=== PATIENT | male | born 1980 | race Caucasian/White ===

== ENCOUNTER 2020-10-10 02:13 | Emergency (ER) | payer OTHER ==
[~2020-10-10] VITALS: Ht 177.8 cm; Wt 99.8 kg
[~2020-10-10 02:13] MED LIST: ZANTAC 150MG T150 MG PO
[2020-10-10 02:42] LABS: ABSOLUTE NEUTROPHILS 3.6 thou/uL (1.4-8.2); BASOPHILS 0.4 % (0.0-2.0); EOSINOPHILS 3.2 % (0.0-3.0); HEMATOCRIT 45.7 % (42.0-52.0); HEMOGLOBIN 15.1 gm/dL (14.0-18.0); LYMPHOCYTES 28.3 % (24.0-44.0); MCH 30.3 pg (26.0-34.0); MCHC 33.1 g/dL (28.0-37.0); MCV 91.4 fL (80.0-100.0); MONOCYTES 7.3 % (1.0-8.0); PLATELET COUNT 214 thou/uL (150-400); POLYS 60.8 % (36.0-66.0); RDW 13.8 % (10.5-14.5)
[2020-10-10 02:46] LABS: CALCIUM 9.2 mg/dL (8.5-10.1); CREATININE 1.5 mg/dL (0.7-1.3); POTASSIUM 3.8 mmol/L (3.5-5.1)
[2020-10-10 02:53] LABS: ALBUMIN 4.1 g/dL (3.4-5.0); TOTAL BILIRUBIN 0.4 mg/dL (0.2-1.0); TOTAL PROTEIN 7.6 g/dL (6.4-8.2)
[2020-10-10] MEDS ORDERED: ZOFRAN ODT4 MG PO (03:24)
[2020-10-10 03:35] VITALS: BP 128/73
== END 2020-10-10 03:36 | disposition home or self-care (01) ==
LOC: ER 02:13
PROVIDERS: Emergency Medicine
DX: R11.2 Nausea with vomiting, unspecified (principal); R10.9 Unspecified abdominal pain

== ENCOUNTER 2021-03-25 11:06 | Emergency (ER) | payer OTHER ==
[~2021-03-25] VITALS: Ht 177.8 cm; Wt 99.8 kg
[~2021-03-25 11:06] MED LIST changes: +ZOFRAN ODT4 MG PO
[2021-03-25 11:11] VITALS: BP 139/71
[2021-03-25] MEDS ORDERED: IBUPROFEN 800800 M1 PO (12:05)
[2021-03-25] MEDS ORDERED: BUTALB-APAP-CA1 EACH PO (12:06)
== END 2021-03-25 12:18 | disposition home or self-care (01) ==
LOC: ER 11:06
DX: U07.1 COVID-19 (principal); Z79.899 Other long term (current) drug therapy